=== PATIENT | male | born 1995 | race Caucasian/White ===

== ENCOUNTER 2016-09-21 01:11 | Emergency (ER) | payer SELFPAY ==
[2016-09-21 01:33] VITALS: BP 145/83; PULSE 84; TEMP 98; BMI 19.8
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
== END 2016-09-21 02:39 | disposition home or self-care (01) ==
LOC: JER 01:11
DX: Z09 Encounter for follow-up examination after completed treatment for conditions other than malignant neoplasm (principal)
CPT/HCPCS: 99281-25